=== PATIENT | male | born 1955 | race Caucasian/White ===

== ENCOUNTER 2017-09-24 17:42 | Emergency (ER) | payer SELFPAY ==
[~2017-09-24] VITALS: Ht 172.7 cm; Wt 82.0 kg
[2017-09-24 17:46] VITALS: BP 130/92
== END 2017-09-24 18:00 | disposition left against medical advice (07) ==
LOC: ER 17:42
DX: R10.9 Unspecified abdominal pain (principal); Z53.21 Procedure and treatment not carried out due to patient leaving prior to being seen by health care provider